=== PATIENT | male | born 1980 | race Caucasian/White ===

== ENCOUNTER 2023-05-10 17:37 | Emergency (ER) | payer OTHER ==
[~2023-05-10] VITALS: Ht 180.3 cm; Wt 77.1 kg
[2023-05-10 17:42] VITALS: BP 168/118
[2023-05-10] MEDS ORDERED: CEPH500 PO (22:08)
== END 2023-05-10 22:23 | disposition home or self-care (01) ==
LOC: ER 17:37
DX: S62.632B Displaced fracture of distal phalanx of right middle finger, initial encounter for open fracture (principal); Y00.XXXA Assault by blunt object, initial encounter
CPT/HCPCS: 11760; 73140; 90471; 90714; 90715; 99283-25